=== PATIENT | male | born 1945 | race Caucasian/White ===

== ENCOUNTER 2017-09-01 23:03 | Emergency (ER) | payer MEDICARE, OTHER, MEDICAID | END 2017-09-02 00:35 | disposition left against medical advice (07) | LOC: E/R 09-02 00:35 | DX: I50.9 Heart failure, unspecified (principal); I10 Essential (primary) hypertension; I25.10 Atherosclerotic heart disease of native coronary artery without angina pectoris; J44.9 Chronic obstructive pulmonary disease, unspecified | CPT/HCPCS: 71045; 93005; 99284-25 ==